=== PATIENT | male | born 1990 | race African-American/Black ===

== ENCOUNTER 2016-10-09 21:20 | Emergency (ER) | payer SELFPAY ==
[2016-10-09 21:28] VITALS: BP 158/83
--- NOTE | 2016-10-09 21:55 | EDM.PDOC ---
ED HPI GENERAL MEDICAL PROBLEM - General Chief Complaint: Genitourinary Problem Stated Complaint: TESTICLE PAIN Time Seen by Provider: 10/09/16 21:49 Source of Information: Reports: Patient History Limitations: Reports: No Limitations - History of Present Illness INITIAL COMMENTS - FREE TEXT/NARRATIVE: ED with complaint of bilateral testicular tenderness worse with intercourse for past month, concerned that they seem to be shrinking. Has not tried anything for pain.Denies fever, No urinary complaint. Denies concern of STD. Onset: Other (over one month) Duration: Week(s):, Recurring Quality: Reports: Ache Associated Symptoms: Reports: No Other Symptoms Bilateral Sacral Pain Score (Numeric/FACES): 8 - Related Data Allergies Allergy/AdvReac Type Severity Reaction Status Date / Time No Known Allergies Allergy Verified 10/09/16 21:28 Home Meds: Home Meds . [No Known Home Meds] 10/09/16 [History] Past Medical History - Past Health History Medical/Surgical History: Denies Medical/Surgical History Social & Family History - Tobacco Use Smoking Status *Q: Never Smoker Second Hand Smoke Exposure: No - Recreational Drug Use Recreational Drug Use: No ED ROS GENERAL - Review of Systems Review Of Systems: See Below ED EXAM, RENAL/ - Physical Exam Exam: See Below Exam Limited By: No Limitations General Appearance: Alert, No Apparent Distress Eye Exam: Bilateral Eye: EOMI Ears: Normal External Exam Throat/Mouth: Normal Inspection Neck: Normal Inspection Respiratory/Chest: No Respiratory Distress, Lungs Clear, Normal Breath Sounds Cardiovascular: Regular Rate, Rhythm GI/Abdominal: Normal Bowel Sounds, Soft (Male) Exam: No Hernia, Normal Inspection, Circumcised. No: Scrotal Swelling , Scrotum Tenderness (L), Scrotum Tenderness (R), Suprapubic Fullness, Testicular Mass, Testicular Tenderness (L), Testicular Tenderness (R) Back Exam: Normal Inspection Extremities: Normal Inspection Neurological: Alert, Oriented Skin Exam: Warm, Dry, Intact Course - Vital Signs Last Recorded V/S: Last Vital Signs Temp 97.6 F 10/09/16 21:22 Pulse 75 10/09/16 21:22 Resp 18 10/09/16 21:22 BP 158/83 H 10/09/16 21:22 Pulse Ox 100 10/09/16 21:22 - Orders/Labs/Meds Labs: Laboratory Tests 10/09/16 Range/Units 21:32 Urine Color Yellow (YELLOW) Urine Appearance Clear (CLEAR) Urine pH 6.5 (5.0-9.0) Ur Specific [place] 1.020 (1.005-1.030) Urine Protein Negative (NEGATIVE) Urine Glucose (UA) Negative (NEGATIVE) Urine Ketones Trace H (NEGATIVE) Urine Occult Blood Negative (NEGATIVE) Urine Nitrite Negative (NEGATIVE) Urine Bilirubin Negative (NEGATIVE) Urine Urobilinogen 0.2 (0.2-1.0) mg/dL Ur Leukocyte Esterase Negative (NEGATIVE) Urine RBC 0-5 /HPF Urine WBC 0-5 (0-5/HPF) /HPF Ur Epithelial Cells Few /HPF Urine Bacteria Few (0-FEW/HPF) /HPF Urine Mucus Many H /LPF Departure - Departure Time of Disposition: 21:55 Disposition: Home, Self-Care 01 Condition: Undetermined Clinical Impression: Testicular pain - Discharge Information Instructions: Testicular Self-Exam, [id number] Forms: ED Department Discharge Additional Instructions: athletic supporter or tight underwear tylenol or ibuprofen follow up in clinic if not improving so ultrasound can be ordered if have not heard results of urine testing in 5 days call [phone] and ask to speak with infection control nurse or nursing attendant for test results
== END 2016-10-09 22:13 | disposition home or self-care (01) ==
LOC: DL.ED 21:20
DX: N50.812 Left testicular pain (principal); N50.811 Right testicular pain
CPT/HCPCS: 81001; 87491; 87591; 99282; 99284